=== PATIENT | female | born 2000 | race Caucasian/White ===

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

== ENCOUNTER 2021-01-28 21:58 | Emergency (ER) | payer SELFPAY ==
[~2021-01-28] VITALS: Ht 157.4 cm; Wt 101.4 kg
--- NOTE | 2021-01-28 23:10 | ED Cough/URI ---
General Chief Complaint: COVID19 Suspect/Confirmed Stated Complaint: COUGH/NAUSEA/HEADACHE/DIARRHEA/SORE THROAT/CHILLS Nursing Triage Note: PATIENT STATES THAT SHE BEGAN TO HAVE COVID SYMPTOMS ON SATURDAY AND TESTED POSITIVE ON 01/27/21. SHE C/O CHILLS, FEVER, BODY ACHES, SORE THROAT, NAUSEA, AND LOSS OF TASTE AND SMELL. SHE HAS BEEN TAKING TYLENOL, MOTRIN AND SINGULAIR. Source: patient History of Present Illness Date Seen by Provider: Jan 28, 2021 Time Seen by Provider: 22:10 Initial Comments PT AR[facility] VIA [facility]OV FROM [facility]ALSO BEING SEEN FOR SAME PT BEGAN GETTING SICK ON Saturday01/23/21 C/O NON-PRODUCTIVE COUGH C/O TEMP UP TO 101 C/O BODY ACHES C/O HEADACHE C/O NAUSEA, NO VOMITING C/O DIARRHEA X 5 TODAY C/O LOSS OF TASTE AND SMELL C/O SORE THROAT C/O FATIGUE NO SHORTNESS OF BREATH NO CHEST PAIN PT IS DRINKING FLUIDS WELL, AND STILL EATING BUT APPETITE HAS BEEN DECREASED PT IS VOIDING A NORMAL AMOUNT--VOIDED ON ARRIVAL AND 1 1/2 HOURS PRIOR TO ARRIVAL LMP--ENDED 3 DAYS AGO. NORMAL. PT AND [facility]ALE [facility] BOTH TESTED + FOR COVID-19 YESTERDAY AT [facility] PT HAS NOT BEEN VACCINATED FOR COVID-19 HAS TAKEN TYLENOL, MOTRIN AND CLARITIN HAS NOT SOUGHT CARE AT ANY TIME SYMPTOMS NO DIFFERENT TONIGHT IN ANY WAY PT HAS NO CHRONIC ILLNESSES PCP: [facility] Allergies and Home Medications Allergies Coded Allergies: No Known Drug Allergies (Unverified , 07/25/16) Patient Home Medication List Home Medication List Reviewed: Yes Ondansetron (Ondansetron Odt) 4 Mg Tab.rapdis, 4 MG PO Q4H Prescribed by: NIMA CASTILLO on 01/28/21 [id number] Review of Systems Review of Systems Constitutional: see HPI, chills, fever EENTM: see HPI, nose congestion, throat pain Respiratory: see HPI, cough; No short of breath Cardiovascular: no symptoms reported; No chest pain Gastrointestinal: see HPI; No abdominal pain; diarrhea, loss of appetite, nausea; No vomiting Genitourinary: no symptoms reported Musculoskeletal: see HPI (BODY ACHES) Skin: no symptoms reported Psychiatric/Neurological: See HPI, Headache Hematologic/Lymphatic: No Symptoms Reported Immunological/Allergic: no symptoms reported Past Rzcudrg-Ygckbr-Voiaai Hx Patient Social History Tobacco Use?: No Substance use?: No Alcohol Use?: No Past Medical History Surgeries: No Respiratory: No Cardiac: No Neurological: No Reproductive Disorders: No Genitourinary: No Gastrointestinal: No Musculoskeletal: No Endocrine: No (OBESITY) HEENT: No Cancer: No Psychosocial: No Integumentary: No Blood Disorders: No Physical Exam Vital Signs - First Documented 01/28/21 01/28/21 22:20 22:30 Temp 37.5 Pulse 104 Resp 22 B/P (MAP) 134/89 (104) Pulse Ox 96 O2 Delivery Room Air O2 Flow Rate 97.00 Capillary Refill : Height: '" Weight: lbs. oz. kg; 40.00 BMI Method: General Appearance: WD/WN, no apparent distress HEENT: PERRL/EOMI, normal ENT inspection, TMs normal, pharynx normal Neck: non-tender, full range of motion, supple, normal inspection Respiratory: normal breath sounds, no respiratory distress, no accessory muscle use Cardiovascular: regular rate, rhythm, no murmur Gastrointestinal: non tender, soft Extremities: normal inspection Neurologic/Psychiatric: circulator II-XII nml as tested, no motor/sensory deficits, alert, normal mood/affect, oriented x 3 Skin: normal color, warm/dry; No rash Progress/Results/Core Measures Suspected Sepsis SIRS Temperature: Pulse: 104 Respiratory Rate: 22 Blood Pressure 134 /89 Mean: 104 Results/Orders Lab Results Laboratory Tests Test 01/28/21 22:23 Range/Units Influenza Type A (RT-PCR) Not Detected Not Detecte Influenza Type B (RT-PCR) Not Detected Not Detecte SARS-CoV-2 RNA (RT-PCR) Detected H Not Detecte My Orders Orders - NIMA CASTILLO DO Influenza A And B By Pcr (01/28/21 22:10) Covid 19 Inhouse Test (01/28/21 22:10) Rx-Ondansetron Po (Rx-Zofran Po) (01/28/21 23:41) Vital Signs/I&O 01/28/21 01/28/21 01/28/21 22:20 22:30 23:56 Temp 37.5 37.2 Pulse 104 98 Resp 22 20 B/P (MAP) 134/89 (104) 129/82 Pulse Ox 96 95 O2 Delivery Room Air Room Air O2 Flow Rate 97.00 Capillary Refill : Blood Pressure Mean: 104 Progress Note : Progress Note PLACED IN ISOLATION ROOM PPE WORN AT ALL TIMES COVID-19 TESTING PERFORMED NO SIGNIFICANT COUGH NO DYSPNEA NO HYPOXIA THIS IS WEEKEND, AND [facility] INFUSIONS NOT AVAILABLE ON WEEKEND, PT WILL BE >10 DAYS FROM ONSET OF ILLNESS BEFORE SHE COULD RECEIVE THE INFUSION DISCUSSED ANTICIPATED COURSE AND SYMPTOMATIC TREATMENT AT THIS POINT Departure Impression Primary Impression: COVID-19 virus infection Disposition: HOME, SELF-CARE Condition: Stable Departure-Patient Inst. Decision time for Depature: 23:35 Referrals: EVELIO JUSTIN DO (PCP) Primary Care Physician WOO WRIGHT APRN (Family) Primary Care Physician Patient Instructions: COVID-19 ED, Preventing the Spread of an Infectious Disease Add. Discharge Instructions: LOTS OF CLEAR LIQUIDS TYLENOL 1 GRAM/ MOTRIN 800 MG 4 TIMES A DAY FOR PAIN OR FEVER OVER THE COUNTER ROBITUSSIN DM FOR COUGH AND CONGESTION FOLLOW UP WITH [facility] IN 4-5 DAYS IF NO BETTER, RETURN TO ER IF WORSE CONTINUE QUARANTINE FOR AN ADDITIONAL 10 DAYS All discharge instructions reviewed with patient and/or family. Voiced understanding. Scripts Ondansetron (Ondansetron Odt) 4 Mg Tab.rapdis 4 MG PO Q4H for Nausea/Vomiting, #10 TAB Prov: NIMA CASTILLO DO 01/28/21 Work/School Note: Work Release Form Date Seen in the Emergency Department: Jan 28, 2021 Return to Work: Feb 06, 2021 NIMA CASTILLO DO Jan 28, 2021 23:10
[2021-01-28] MEDS ORDERED: RX-ONDANSETRON 4 MG ODT (ZOFRAN) PPK #4 PO STA (23:41)
[2021-01-28] MEDS ORDERED: ONDA4TAB11 PO (23:42)
[2021-01-28 23:56] VITALS: BP 129/82
== END 2021-01-28 23:53 | disposition home or self-care (01) ==
LOC: EDUNIT# 21:58 → ER 22:01
DX: U07.1 COVID-19 (principal); E66.9 Obesity, unspecified; Z68.41 Body mass index [BMI] 40.0-44.9, adult
CPT/HCPCS: 87636; 99283